=== PATIENT | female | born 1960 | race Caucasian/White ===

== ENCOUNTER 2024-08-14 04:55 | Emergency (ER) | payer OTHER, SELFPAY ==
[2024-08-14 06:51] VITALS: BP 204/104
--- NOTE | 2024-08-14 06:51 | EDRN ---
Dr. Fernandez currently at the pts bedside
[2024-08-14 06:52] VITALS: BP 204/104; BMI 26.7
[2024-08-14 07:00] VITALS: BP 191/113
[2024-08-14 07:06] VITALS: BP 191/113
[2024-08-14 07:18] VITALS: BP 205/123
--- NOTE | 2024-08-14 07:32 | EDRN ---
this RN rechecked the pts blood pressure and the pt was still hypertensive, the pt stated, 'It's fine i just need to go home and sleep i have been up all night and i haven't taken my blood pressure medication yet today', this RN offered to get an
order for the pts blood pressure medication and the pt stated, 'No i just need to go home but thank you', the pt and her started to walk out of room #9 and this RN asked if they could stay until Dr. Fernandez came back to the pts bedside and
the pt stated, 'I am really okay i promise i just need to go to sleep', this RN notified Dr. Fernandez
--- NOTE | 2024-08-14 07:34 | ED.GENMED ---
History of Present Illness
General
Chief Complaint: Nose Bleed
Source: patient and spouse
Time Seen by Provider: 08/14/24 06:40
History of Present Illness
History of Present Illness:
63-year-old female presents with a nosebleed. She states it started in the right nare and seem to subside but then in the middle of the night she woke up again with the bleeding. She states she had difficult time making it stop. On my evaluation
bleeding has stopped and she has not noticed any bleeding for the last hour. She denies headache or vision changes. Does note that her blood pressure typically runs 'high'. She did not take her morning medications yet. Patient states that she
did really know what to do when her goes blood. states that it was bleeding significantly but now has subsided
Past History
Past History
ED Past Medical History: HTN
Phy Exam
Physical Exam
Physical Exam:
CONSTITUTIONAL Patient alert and oriented to person, place and time. Well-appearing. Vital signs reviewed. Blood pressure noted to be elevated on exam
HEAD atraumatic, normocephalic.
EYES eyelids normal to inspection, Extraocular muscles intact, Conjunctiva normal, Sclera normal.
NECK normal range of motion, Trachea midline, no jugular venous distention.
ENT dried blood noted in the right nare, no active bleeding
RESPIRATORY CHEST No respiratory distress noted, Chest expansion equal
UPPER EXTREMITY range of motion normal, Motor strength normal, no cyanosis, no edema.
LOWER EXTREMITY range of motion normal, Motor strength normal, no cyanosis, no edema.
NEURO Speech normal, No focal motor deficits, Waterfall coma scale 15, Memory normal, Cranial Nerves intact to screening exam.
SKIN skin warm, dry, and normal in color.
Course
Vital Signs
Initial and Last Documented VS:
Initial Vital Signs
BP
204/104
08/14/24 06:51
Last Documented Vital Signs
Temp Pulse Resp BP Pulse Ox
97.6 F 110 20 205/123 99
08/14/24 06:52 08/14/24 07:18 08/14/24 07:18 08/14/24 07:18 08/14/24 07:18
MDM/Problems Addressed
MDM/Problems Addressed:
Uncontrolled hypertension, epistaxis
*Pulse Oximetry
Patient hypoxic: no
*Critical Care Note
Total Time (30-74mins, 75-104mins- exclusive of procedures): Not Applicable
Data Reviewed
Source: patient and family
Prescriptions/Medications Considered But Not Given:
Considered IV antihypertensives but patient would like to forego treatment
Patient Management
Escalation/DeEscalation of care consider admission/obs:
63-year-old who presents with epistaxis. No further bleeding. Observe the emergency department no further bleeding. Is quite hypertensive. Patient states she gets whitecoat syndrome and it typically runs 1 40-1 80. She has not taken her morning
meds. Unfortunately, she had to leave and left prior to my reassessment but explained to the nurse that she would like to go home and take her blood pressure medications at home. She is otherwise well-appearing. I did counselor dormitory her on the
importance of blood pressure management over the long-term. She understands and agrees.
ED Attending Note
-
Portions of this chart may have been created with voice recognition software.� Occasional wrong word or��sound alike� substitutions may have occurred due to the inherent limitations of voice recognition software.
Discharge Plan
Departure
Patient Disposition: Home (Routine Discharge)
Date of Disposition: 08/14/24
Time of Disposition: 07:37
Patient with high blood pressure during this ER visit?: Yes
Discharge Problem:
Uncontrolled hypertension, Acute anterior epistaxis
Instructions: BLOOD PRESSURE, Nosebleeds (DC)
Referrals:
Fuentes Heath DO [Family Provider] -
Interventions
Interventions:
*Risk Screen - Suicide Last Done: 08/14/24 04:57
*General Assessment Last Done: 08/14/24 05:56
*Neglect/Abuse Screening Last Done: 08/14/24 04:57
*ED- Fall Risk Assessment Last Done: 08/14/24 05:56
*ED COVID-19 Vaccine History Last Done: 08/14/24 05:56
ED-EENT Assessment Last Done: 08/14/24 06:52
Discharge Date and Time
Print Language: GERMAN
== END 2024-08-14 08:00 | disposition home or self-care (01) ==
LOC: EMR 04:55
PROVIDERS: EMERGENCY PHYSICIAN Emergency Medicine; FAMILY PHYSICIAN Family Medicine
DX: I10 Essential (primary) hypertension (principal); R04.0 Epistaxis
CPT/HCPCS: 99282